=== PATIENT | male | born 1975 | race Asian ===

== ENCOUNTER 2019-12-14 07:38 | Emergency (ER) | payer OTHER ==
[2019-12-14] VITALS (10 sets, daily range): BP systolic 144–213; BP diastolic 89–126; TEMP 97.6–97.7
[~2019-12-14] VITALS: Ht 180.3 cm; Wt 136.1 kg
[2019-12-14 11:00] LABS: PLATELET COUNT 288 K/uL (142-355)
[2019-12-14 11:01] LABS: POTASSIUM 3.9 mmol/L (3.6-5.2)
[2019-12-14 11:21] LABS: PARTIAL THROMBOPLASTIN TIME 26.7 SECONDS (24.5-33.6)
== END 2019-12-14 12:23 | disposition home or self-care (01) ==
LOC: ED 07:38 → MED/SURG 11:30 → ED 11:30
PROVIDERS: Hospitalist
DX: J06.9 Acute upper respiratory infection, unspecified (principal); I16.0 Hypertensive urgency; F17.210 Nicotine dependence, cigarettes, uncomplicated
CPT/HCPCS: 36415; 80053; 82550; 82553; 83880; 84484; 85027; 85610; 85730; 87502; 87651; 93005; 96374; 96375; 96376; 99284; J2405; J3490